=== PATIENT | male | born 1985 | race Caucasian/White ===

== ENCOUNTER → 2016-05-14 | Emergency (ER) | payer OTHER ==
[~2016-05-14] VITALS: Ht 170.2 cm; Wt 83.4 kg
[~2016-05-14] MED LIST: OXYC1TAB3 PO; OXYCODONE HCL IR 5 MG TAB (IMMEDIATE RELEASE) PO STA; OXYCODONE IR HOME PACK PO ONE
[2016-05-14 17:56] VITALS: Ht 170.2 cm; Wt 83.4 kg
--- NOTE | 2016-05-14 18:26 | EMERGENCY ROOM VISIT NOTE ---
History First contact with patient: 18:01 Chief Complaint: ELBOW PAIN/INJURY Stated Complaint: FELL OUT OF TRAILER,LF ELBOW PAIN History of Present Illness The patient is a 31 year old male who presents to the Emergency Room with complaints of fall. The patient was at work. He states that he was on the back of a dump trailer and fell. He states that he injured his left elbow. He states he also sustained an abrasion to the left knee but denies any knee pain. He rates the discomfort in the left arm a 9.5/10. He denies striking his head or having loss of consciousness. He denies any chest pain, trouble breathing, abdominal pain. He reports pain in the elbow. He had the arm wrapped today. He is able to walk without any significant difficulty. Review of Systems A 10 system review of systems was completed with positives and pertinent negatives listed in the HPI. Past Medical/Surgical History patient denies Social History Smoking Status: Current Some Day Smoker Occupation Status: employed Current/Historical Medications Scheduled PRN Oxycodone Ir (Roxicodone Ir), 1-2 TAB PO Q4H PRN for Pain Allergies Coded Allergies: Acetaminophen (Unverified Adverse Reaction, Severe, "I HAVE A BAD LIVER." , 05/14/16) Physical Exam Vital Signs Date Time Temp Pulse Resp B/P Pulse Ox O2 Delivery O2 Flow Rate FiO2 05/14/16 20:34 36.7 88 18 135/75 100 05/14/16 19:57 88 18 135/75 100 Room Air 05/14/16 17:56 36.7 92 18 138/88 96 Room Air Physical Exam VITALS: Vitals are noted on the nurse's note and reviewed by myself. Vital signs stable. GENERAL: A 31-year-old male, in no acute distress, nondiaphoretic, well- developed well-nourished. SKIN: There is a superficial abrasion to the left knee. There is mild swelling noted to the left elbow. There is no tenting of the skin. Capillary reflex less than 2 seconds. HEAD: Normocephalic atraumatic. EARS: External auditory canals clear, tympanic membranes pearly johnson without erythema or effusion bilaterally. No hemotympanum. No villalta sign. No mastoid tenderness. EYES: Pupils equal round and reactive to light and accommodation. Conjunctivae without injection, sclerae without icterus. Extraocular movements intact. NOSE: Patent, turbinates without inflammation or discharge. No sinus tenderness. No septal hematoma or bleeding. FACE: No facial tenderness. Full range of motion of the jaw without tenderness. MOUTH: Mucous membranes moist. Pharynx without erythema or exudate. Uvula midline. Airway patent. Tongue does not deviate. NECK: Supple without nuchal rigidity. Cervical spine is nontender. Full range of motion of the neck without tenderness. No JVD. HEART: Regular rate and rhythm without murmurs gallops or rubs. LUNGS: Clear to auscultation bilaterally without wheezes, rales or rhonchi. No retractions or accessory muscle use. No chest tenderness. MUSCULOSKELETAL: There is tenderness, ecchymosis and edema to the left elbow. There is decreased range of motion. There is no obvious deformity. There is pain with any movement of the elbow but particularly supination and pronation. There is a superficial abrasion to the left knee but no tenderness, ecchymosis, edema or deformity. Normal gait. Strength 5/5 throughout. NEURO: Patient was alert and oriented to person place and time. Normal Mini- Mental status exam. No focal neurological deficits. Medical Decision & Procedures ER Provider Diagnostic Interpretation: [~ rep ct add3]] LEFT HUMERUS MIN 2 VIEWS ROUTINE, LEFT ELBOW MIN 3 VIEWS ROUTINE CLINICAL HISTORY: left arm pain, fall COMPARISON STUDY: None. FINDINGS: There is a left elbow effusion. Probable subtle nondisplaced radial head fracture. No fracture or dislocation within the left humerus. IMPRESSION: 1. Left elbow effusion with a probable subtle nondisplaced radial head fracture. 2. No fracture or dislocation within the left humerus. Medications Administered Medications (Trade) Dose Ordered Sig/Markus Route Start Time Stop Time Status Last Admin Dose Admin Oxycodone HCl (Roxicodone Immediate Rel 5MG Home Pack) 1 homepack UD ONCE PO 05/14/16 20:15 05/14/16 20:16 DC 05/14/16 20:34 1 HOMEPACK Oxycodone HCl (Roxicodone Immediate Rel Tab) 5 mg NOW STAT PO 05/14/16 20:05 05/14/16 20:07 DC 05/14/16 20:34 5 MG Procedure The patient was placed in a posterior long-arm Ortho-Glass splint by the emergency department concrete technician. The position was satisfactory and neurovascular status was intact. ED Course The patient was seen and examined. Previous visits were reviewed. Imaging was obtained as above. The patient appears to have a subtle nondisplaced left radial head fracture. He also sustained an abrasion to the left knee. The patient initially declined pain medication at once his parents arrived he was given OxyIR. He was given a take-home pack of OxyIR as well as a prescription. The patient was splinted as above. He is encouraged to contact orthopedics first thing Tuesday to schedule a follow-up appointment. He should return with worsening symptoms Medical Decision The differential diagnosis includes sprain, strain, contusion, fracture, abrasion, among others [place] Drug Monitoring Program Search Results: patient reviewed within database, no issues identified Impression Primary Impression: Radial head fracture, closed Additional Impressions: Work related injury Fall Knee abrasion Departure Information Dispostion Home / Self-Care Condition GOOD Prescriptions Oxycodone Ir (Roxicodone Ir) 5 Mg Tab 1-2 TAB PO Q4H Y for Pain, #36 TAB For Initial Treatment Prov: Argenis Shah PA-C 05/14/16 Referrals No Doctor, Assigned (PCP) Chavez Booker M.D. Forms HOME CARE DOCUMENTATION FORM, IMPORTANT VISIT INFORMATION, Work Instructions Additional Instructions: Must wear sling and splint with limited use of the left arm until cleared by orthopedics Patient Instructions ED Fx Radial Head, My [facility] Additional Instructions Ibuprofen 600 mg every 6-8 hours or moderate pain Oxy IR 1-2 tablets every 4-6 hrs as needed for worse pain. No driving or alcohol use with Oxy IR. Wear the splint until seen by orthopedics. Do not get the splint wet. Contact orthopedics first thing Tuesday to schedule a follow-up appointment for further evaluation and management. Return with any worsening symptoms. Problem Qualifiers Primary Impression: Radial head fracture, closed Encounter type: initial encounter Fracture alignment: nondisplaced Laterality: left Qualified Codes: S52.125A - Nondisplaced fracture of head of left radius, initial encounter for closed fracture Additional Impressions: Fall Encounter type: initial encounter Qualified Codes: W19.XXXA - Unspecified fall, initial encounter Knee abrasion Encounter type: initial encounter Laterality: left Qualified Codes: S80.212A - Abrasion, left knee, initial encounter
--- NOTE | 2016-05-14 19:54 | DIAGNOSTIC IMAGING REPORT ---
LEFT HUMERUS MIN 2 VIEWS ROUTINE, LEFT ELBOW MIN 3 VIEWS ROUTINE CLINICAL HISTORY: left arm pain, fall COMPARISON STUDY: None. FINDINGS: There is a left elbow effusion. Probable subtle nondisplaced radial head fracture. No fracture or dislocation within the left humerus. IMPRESSION: 1. Left elbow effusion with a probable subtle nondisplaced radial head fracture. 2. No fracture or dislocation within the left humerus. Electronically signed by: Domingo Kelly M.D. 05/14/2016 7:52 PM Dictated Date/Time: 05/14/2016 7:49 PM
[2016-05-14 20:34] VITALS: BP 135/75; PULSE 88; TEMP 36.7; O2SAT 100
== END | disposition home or self-care (01) ==
LOC: C.EDB 17:54
DX: S52.125A Nondisplaced fracture of head of left radius, initial encounter for closed fracture (principal); S80.212A Abrasion, left knee, initial encounter; W19.XXXA Unspecified fall, initial encounter; Y92.89 Other specified places as the place of occurrence of the external cause; Y99.0 Civilian activity done for income or pay; F17.200 Nicotine dependence, unspecified, uncomplicated; Z88.6 Allergy status to analgesic agent

== ENCOUNTER 2017-05-25 17:56 | Emergency (ER) | payer SELFPAY ==
[~2017-05-25] VITALS: Ht 170.2 cm; Wt 80.0 kg
[2017-05-25 18:08] VITALS: TEMP 36.8; Ht 170.2 cm; Wt 80.0 kg
[2017-05-25] MEDS ORDERED: SODIUM CHLORIDE 0.9% 1000ML 1,000 ML IV STA (19:43)
[2017-05-25] MEDS ORDERED: OPTIRAY 320 IV PRN (20:00)
[2017-05-25 20:11] LABS: BASO % 0.1 %; BASO ABS # 0.01 K/uL (0-0.2); EOS % 0.5 %; EOS ABS # 0.05 K/uL (0-0.5); HEMATOCRIT 44.5 % (42-52); IG# 0.03 K/uL (0.00-0.02); LYMPH % 43.6 %; MEAN PLATELET VOLUME 9.3 fL (7.4-10.4); MONO % 6.6 %; MONO ABS # 0.68 K/uL (0.11-0.59); NEUT % 48.9 %; NEUT ABS # 5.06 K/uL (1.4-6.5); PLATELET COUNT 261 K/uL (130-400); RED CELL DISTRIBUTION WIDTH CV 12.6 % (11.5-14.5); RED CELL DISTRIBUTION WIDTH SD 40.8 fL (36.4-46.3); WHITE BLOOD COUNT 10.33 K/uL (4.8-10.8)
[2017-05-25 20:30] LABS: ALBUMIN 4.2 gm/dl (3.4-5.0); ALT/SGPT 38 U/L (12-78); AST/SGOT 27 U/L (15-37); BLOOD UREA NITROGEN 17 mg/dl (7-18); CALCIUM 9.4 mg/dl (8.5-10.1); CARBON DIOXIDE 28 mmol/L (21-32); CREATININE 0.98 mg/dl (0.60-1.40); GLUCOSE 82 mg/dl (70-99); LIPASE 88 U/L (73-393); POTASSIUM 3.8 mmol/L (3.5-5.1); SODIUM 136 mmol/L (136-145)
[2017-05-25 20:33] LABS: ALKALINE PHOSPHATASE 62 U/L (45-117); TOTAL PROTEIN 7.4 gm/dl (6.4-8.2)
--- NOTE | 2017-05-25 21:24 | DIAGNOSTIC IMAGING REPORT ---
ABD/PELVIS IV CONTRAST ONLY CLINICAL HISTORY: 32 years-old Male presenting with LLQ pain going into groin . TECHNIQUE: Multidetector CT of the abdomen and pelvis was performed after the administration of intravenous contrast. IV contrast: 93 mL of Optiray 320. A dose lowering technique was used consistent with the principles of ALARA (as low as reasonably achievable). COMPARISON: None. CT DOSE (mGy.cm): The estimated cumulative dose is 331.06 mGy.cm. FINDINGS: Absorption And Adsorption Engineer topogram: Unremarkable. Lung bases: Lungs and pleural spaces clear. Normal heart size. No pericardial or pleural effusion. Liver: Normal morphology. No liver lesion. Patent hepatic vasculature. Biliary: No intrahepatic or extrahepatic biliary ductal dilatation. Normal gallbladder. Pancreas: Normal. Spleen: Normal. Adrenal glands: Normal. Kidneys and ureters: Normal. No hydronephrosis. Bladder: Incompletely evaluated secondary to underdistention. Pelvic organs: Prostate and seminal vesicles normal. Bowel: Normal appendix. No bowel obstruction. Peritoneal cavity: No free fluid or intraperitoneal gas. Lymph nodes: No enlarged lymph nodes in the abdomen or pelvis. Vasculature: Aorta and IVC patent and normal in caliber. Abdominal wall: Normal. Musculoskeletal: Normal. IMPRESSION: 1. No acute intra-abdominal pathology. Electronically signed by: Jorge See M.D. 05/25/2017 9:22 PM Dictated Date/Time: 05/25/2017 9:18 PM
--- NOTE | 2017-05-25 22:38 | DIAGNOSTIC IMAGING REPORT ---
(TESTICULAR) SCROTUM-CONT CLINICAL HISTORY: 32 years-old Male presenting with L testicle pain . TECHNIQUE: Real-time grayscale and color and spectral Doppler ultrasound imaging of the scrotum was performed. COMPARISON: None. FINDINGS: Right testis: Normal echogenicity and echotexture. Testis measures 3.3 x 4.8 x 2.8 cm. Normal color Doppler flow and arterial and venous waveforms in the testicular parenchyma. Epididymal head normal. Small hydrocele No varicocele. Left testis: Normal echogenicity and echotexture. Incidental note made of the appendix testis. Testis measures 3.2 x 4.8 x 2.8 cm. Normal color Doppler flow and arterial and venous waveforms in the testicular parenchyma. Left epididymis not well visualized. Small hydrocele. No varicocele. Subtle asymmetric increased perfusion of the left testis may be present. IMPRESSION: 1. No evidence of testicular torsion. 2. Subtle asymmetric increased perfusion of the left testis and poor visualization of the left epididymis. It is difficult to exclude left epididymitis-orchitis though this is not favored. Follow-up as clinically indicated. 3. Small bilateral hydroceles. Electronically signed by: Jorge See M.D. 05/25/2017 10:37 PM Dictated Date/Time: 05/25/2017 10:34 PM
[2017-05-25] MEDS ORDERED: CIPROFLOXACIN 500 MG TAB PO STA (22:53)
[2017-05-25] MEDS ORDERED: CIPR-255 PO (22:53)
[2017-05-25 22:58] VITALS: BP 134/78; PULSE 74; O2SAT 99
--- NOTE | 2017-05-26 00:24 | EMERGENCY ROOM VISIT NOTE ---
History Report prepared by Prasad: Kimberly Edge Under the Supervision of: Dr. Chago Benoit D.O. First contact with patient: 19:34 Chief Complaint: GROIN PAIN Stated Complaint: PAIN IN TESTICAL History of Present Illness The patient is a 32 year old male who presents to the Emergency Room with complaints of persistent left testicle pain starting yesterday. He was lifting a wheelbarrow into his truck when the pain started. The pain improved after a while and he was able to sleep at night. This morning, he went to work and the pain worsened again. He currently rates his discomfort as a 10/10 in severity. He describes it as a pulling. The pain worsens with lifting. He denies any nausea, vomiting, diarrhea, urinary symptoms, cough, rhinorrhea, chest pain, or SOB. He reports that his stool today was thinner than usual. He has not been sexually active for the past year. Source of History: patient Onset: yesterday Position: other (left testicle) Symptom Intensity: 10/10 Quality: other (pulling) Timing: other (persistent) Modifying Factors (Worsening): other (lifting) Associated Symptoms: No cough, No chest pain, No SOB, No nausea, No vomiting , No diarrhea, No urinary symptoms Review of Systems See HPI for pertinent positives & negatives. A total of 10 systems reviewed and were otherwise negative. Past Medical & Surgical Medical Problems: (1) Club foot Family History Cancer Diabetes mellitus FH: gallbladder disease Heart disease Hypertension Kidney disease Kidney stones Social History Smoking Status: Current Every Day Smoker Occupation Status: employed Current/Historical Medications Scheduled Ciprofloxacin Hcl (Cipro), 500 MG PO BID Allergies Coded Allergies: Acetaminophen (Unverified Adverse Reaction, Severe, "I HAVE A BAD LIVER." , 05/14/16) Physical Exam Vital Signs Date Time Temp Pulse Resp B/P (MAP) Pulse Ox O2 Delivery O2 Flow Rate FiO2 05/25/17 22:58 74 16 134/78 99 05/25/17 20:14 54 16 121/76 100 Room Air 05/25/17 18:08 36.8 90 18 136/70 99 Room Air Physical Exam GENERAL: Sitting up in bed, holding left groin, no acute distress, nontoxic EYE EXAM: normal conjunctiva. OROPHARYNX: no exudate, no erythema, lips, buccal mucosa, and tongue normal and mucous membranes are moist NECK: supple, no nuchal rigidity, no adenopathy, non-tender LUNGS: Clear to auscultation. Normal chest wall mechanics HEART: no murmurs, S1 normal and S2 normal ABDOMEN: abdomen soft, non-tender, normo-active bowel sounds, no masses, no rebound or guarding. BACK: Back is symmetrical on inspection and there is no deformity, no midline tenderness, no CVA tenderness. : Tenderness to palpation of the LLQ tracking down through the left testicle, no penile discharge, positive cremasteric reflex bilaterally, no appreciable mass in the left inguinal canal SKIN: no rashes and no bruising UPPER EXTREMITIES: upper extremities are grossly normal. LOWER EXTREMITIES: No pitting edema. NEURO EXAM: Normal sensorium, cranial nerves II-XII grossly intact, normal speech, no gross weakness of arms, no gross weakness of legs. Medical Decision & Procedures ER Provider Diagnostic Interpretation: Radiology results as stated below per my review and the radiologist's interpretation: (TESTICULAR) SCROTUM-CONT CLINICAL HISTORY: 32 years-old Male presenting with L testicle pain . TECHNIQUE: Real-time grayscale and color and spectral Doppler ultrasound imaging of the scrotum was performed. COMPARISON: None. FINDINGS: Right testis: Normal echogenicity and echotexture. Testis measures 3.3 x 4.8 x 2.8 cm. Normal color Doppler flow and arterial and venous waveforms in the testicular parenchyma. Epididymal head normal. Small hydrocele No varicocele. Left testis: Normal echogenicity and echotexture. Incidental note made of the appendix testis. Testis measures 3.2 x 4.8 x 2.8 cm. Normal color Doppler flow and arterial and venous waveforms in the testicular parenchyma. Left epididymis not well visualized. Small hydrocele. No varicocele. Subtle asymmetric increased perfusion of the left testis may be present. IMPRESSION: 1. No evidence of testicular torsion. 2. Subtle asymmetric increased perfusion of the left testis and poor visualization of the left epididymis. It is difficult to exclude left epididymitis-orchitis though this is not favored. Follow-up as clinically indicated. 3. Small bilateral hydroceles. Electronically signed by: Jorge See M.D. 05/25/2017 10:37 PM Dictated Date/Time: 05/25/2017 10:34 PM ABD/PELVIS IV CONTRAST ONLY CLINICAL HISTORY: 32 years-old Male presenting with LLQ pain going into groin . TECHNIQUE: Multidetector CT of the abdomen and pelvis was performed after the administration of intravenous contrast. IV contrast: 93 mL of Optiray 320. A dose lowering technique was used consistent with the principles of ALARA (as low as reasonably achievable). COMPARISON: None. CT DOSE (mGy.cm): The estimated cumulative dose is 331.06 mGy.cm. FINDINGS: Water Meter Mechanic topogram: Unremarkable. Lung bases: Lungs and pleural spaces clear. Normal heart size. No pericardial or pleural effusion. Liver: Normal morphology. No liver lesion. Patent hepatic vasculature. Biliary: No intrahepatic or extrahepatic biliary ductal dilatation. Normal gallbladder. Pancreas: Normal. Spleen: Normal. Adrenal glands: Normal. Kidneys and ureters: Normal. No hydronephrosis. Bladder: Incompletely evaluated secondary to underdistention. Pelvic organs: Prostate and seminal vesicles normal. Bowel: Normal appendix. No bowel obstruction. Peritoneal cavity: No free fluid or intraperitoneal gas. Lymph nodes: No enlarged lymph nodes in the abdomen or pelvis. Vasculature: Aorta and IVC patent and normal in caliber. Abdominal wall: Normal. Musculoskeletal: Normal. IMPRESSION: 1. No acute intra-abdominal pathology. Electronically signed by: Jorge See M.D. 05/25/2017 9:22 PM Dictated Date/Time: 05/25/2017 9:18 PM Laboratory Results 05/25/17 19:56 Red Blood Count 5.00, Mean Corpuscular Volume 89.0, Mean Corpuscular Hemoglobin 32.0, Mean Corpuscular Hemoglobin Concent 36.0, Mean Platelet Volume 9.3, Neutrophils (%) (Auto) 48.9, Lymphocytes (%) (Auto) 43.6, Monocytes (%) (Auto) 6.6, Eosinophils (%) (Auto) 0.5, Basophils (%) (Auto) 0.1, Neutrophils # (Auto) 5.06, Lymphocytes # (Auto) 4.50, Monocytes # (Auto) 0.68, Eosinophils # (Auto) 0.05, Basophils # (Auto) 0.01 05/25/17 19:56 Test 05/25/17 19:56 White Blood Count 10.33 K/uL (4.8-10.8) Red Blood Count 5.00 M/uL (4.7-6.1) Hemoglobin 16.0 g/dL (14.0-18.0) Hematocrit 44.5 % (42-52) Mean Corpuscular Volume 89.0 fL (80-100) Mean Corpuscular Hemoglobin 32.0 pg (25-34) Mean Corpuscular Hemoglobin Concent 36.0 g/dl (32-36) Platelet Count 261 K/uL (130-400) Mean Platelet Volume 9.3 fL (7.4-10.4) Neutrophils (%) (Auto) 48.9 % Lymphocytes (%) (Auto) 43.6 % Monocytes (%) (Auto) 6.6 % Eosinophils (%) (Auto) 0.5 % Basophils (%) (Auto) 0.1 % Neutrophils # (Auto) 5.06 K/uL (1.4-6.5) Lymphocytes # (Auto) 4.50 K/uL (1.2-3.4) Monocytes # (Auto) 0.68 K/uL (0.11-0.59) Eosinophils # (Auto) 0.05 K/uL (0-0.5) Basophils # (Auto) 0.01 K/uL (0-0.2) RDW Standard Deviation 40.8 fL (36.4-46.3) RDW Coefficient of Variation 12.6 % (11.5-14.5) Immature Granulocyte % (Auto) 0.3 % Immature Granulocyte # (Auto) 0.03 K/uL (0.00-0.02) Urine Color YELLOW Urine Appearance CLEAR (CLEAR) Urine pH 5.0 (4.5-7.5) Urine Specific [place] 1.029 (1.000-1.030) Urine Protein NEG (NEG) Urine Glucose (UA) NEG (NEG) Urine Ketones 1+ (NEG) Urine Occult Blood NEG (NEG) Urine Nitrite NEG (NEG) Urine Bilirubin NEG (NEG) Urine Urobilinogen NEG (NEG) Urine Leukocyte Esterase NEG (NEG) Urine WBC (Auto) 1-5 /hpf (0-5) Urine RBC (Auto) 0-4 /hpf (0-4) Urine Hyaline Casts (Auto) 1-5 /lpf (0-5) Urine Epithelial Cells (Auto) 0-5 /lpf (0-5) Urine Bacteria (Auto) NEG (NEG) Anion Gap 5.0 mmol/L (3-11) Est Creatinine Clear Calc Drug Dose 110.7 ml/min Estimated GFR () 118.6 Estimated GFR (Non- 102.3 BUN/Creatinine Ratio 17.6 (10-20) Calcium Level 9.4 mg/dl (8.5-10.1) Total Bilirubin 0.3 mg/dl (0.2-1) Direct Bilirubin < 0.1 mg/dl (0-0.2) Aspartate Amino Transf (AST/SGOT) 27 U/L (15-37) Alanine Aminotransferase (ALT/SGPT) 38 U/L (12-78) Alkaline Phosphatase 62 U/L (45-117) Total Protein 7.4 gm/dl (6.4-8.2) Albumin 4.2 gm/dl (3.4-5.0) Lipase 88 U/L (73-393) Laboratory results per my review. Medications Administered Medications (Trade) Dose Ordered Sig/Markus Route Start Time Stop Time Status Last Admin Dose Admin Sodium Chloride 1,000 ml @ 999 mls/hr Q1H1M STAT IV 05/25/17 19:43 05/25/17 20:43 DC 05/25/17 20:00 999 MLS/HR ED Course ED COURSE: Vital signs were reviewed and showed normal vitals. The patients medical record was reviewed The above diagnostic studies were performed and reviewed. ED treatments and interventions as stated above. 1937: The patient was evaluated in room A4B. A complete history and physical examination was performed. 1942: Sodium Chloride 1000 ml @ 999 mls/hr IV. 2147: I reevaluated the patient. I discussed the risks and benefits of an ultrasound. He is agreeable to staying for ultrasound. 2242: Upon reevaluation, the patient is resting comfortably. He notes that he has not had sex for the past year. I discussed my findings with the patient and he understands and agrees with the treatment plan. Based on the patients age, coexisting illnesses, exam and lab findings the decision to treat as an outpatient was made. The patient remained stable while under my care. The patient appeared well at the time of discharge. 2253: Cipro Tab 500 mg PO. Medical Decision Differential diagnoses includes but is not limited to gastritis, peptic ulcer disease, GERD, gallbladder disease, pancreatitis, small bowel obstruction, acute coronary syndrome, pericarditis, ischemic bowel, irritable bowel disease, irritable bowel syndrome, appendicitis, diverticulitis, malignancy, hernia, urinary tract infection, torsion, perforation, trauma, infectious. Patient is a 32-year-old male that presents to ER for pain in his left testicle/ groin and abdomen. This started over 24 hours ago while lifting. No appreciable mass. He is not sexually active. Abdominal exam is benign. with positive cremasteric reflex. CBC along with BMP, LFTs, bilirubin lipase is unremarkable. UA was negative. CT abdomen pelvis was benign. Ultrasound of the left testicle did show increased blood flow. Based on this and since they did not visualize the epididymis I did elect to treat him with Cipro. I do favor this likely a groin strain however to be on the safe side did prescribe him a short course of ciprofloxacin as he is not sexually active. Discussed with Pt concerning signs and symptoms to watch out for. Pt was instructed to follow up with their PCP and discussed with the patient their option to return to the ED at anytime for persistent or worsening symptoms. The appropriate anticipatory guidance and out-patient management, including indications for return to the emergency department, were explained at length to the patient and understood. Medication Reconcilliation Current Medication List: was personally reviewed by me Blood Pressure Screening Patient's blood pressure: Normal blood pressure Blood pressure disposition: Did not require urgent referral Impression Primary Impression: Testicular pain, left Scribe Attestation The scribe's documentation has been prepared under my direction and personally reviewed by me in its entirety. I confirm that the note above accurately reflects all work, treatment, procedures, and medical decision making performed by me. Departure Information Dispostion Home / Self-Care Prescriptions Ciprofloxacin Hcl (CIPRO) 500 Mg Tab 500 MG PO BID, #14 TAB Prov: Chago Benoit, 05/25/17 Referrals No Doctor, Assigned (PCP) Forms HOME CARE DOCUMENTATION FORM, IMPORTANT VISIT INFORMATION, WORK / SCHOOL INSTRUCTIONS Patient Instructions ED Strain Groin, [facility] Additional Instructions Please follow up with your primary care doctor with in the next 24 hours. Any worsening of your symptoms, please return to the ED immediately. This includes any fevers greater than 100.4, worsening pain, chest pain, shortness breath, persistent nausea, vomiting, unable to eat or drink, or any other concerning signs or symptoms from your standpoint. Please take Tylenol or Motrin as needed for pain. He left prior to the resulting ultrasound. You will receive a phone call in regards to your results.
== END 2017-05-25 22:59 | disposition home or self-care (01) ==
LOC: C.EDB 17:58 → C.EDA 22:59
DX: N50.812 Left testicular pain (principal); F17.200 Nicotine dependence, unspecified, uncomplicated